=== PATIENT | male | born 1990 | race Hispanic/Latino ===

== ENCOUNTER 2018-03-01 20:49 | Inpatient (IN) | payer BC, OTHER ==
--- NOTE | 2018-03-01 21:55 | ED PDOC ---
HPI: Psych/Substance Abuse Time Seen by Provider: 03/01/18 21:37 Chief Complaint (Nursing): Psychiatric Evaluation Chief Complaint (Provider): Psychiatric Evaluation History Per: Patient History/Exam Limitations: no limitations Onset/Duration Of Symptoms: Days (several weeks) Current Symptoms Are (Timing): Still Present Additional Complaint(s): 27 year old male presents to the ED for a psychiatric evaluation. Patient states for the past several weeks he has been feeling depressed, drinking every day, his last time two hours ago. He also reports that today while smoking on the fifth floor of his friend's apartment building, he felt a sudden urge to want to jump out the window, but currently has no plan to harm himself, despite having a suicide attempt eight years ago. Patient is requesting an alcohol detox , and otherwise denies homicidal ideation or hallucinations. PMD: none provided Past Medical History Reviewed: Historical Data, Nursing Documentation, Vital Signs Vital Signs: Last Vital Signs Temp 98.1 F 03/01/18 21:29 Pulse 78 03/01/18 21:29 Resp 18 03/01/18 21:29 BP 147/95 H 03/01/18 21:29 Pulse Ox 100 03/01/18 21:29 - Medical History PMH: Chronic Pain (to neck and back) Other PMH: spinal bifida, born with 1 kidney - Surgical History Other surgeries: to neck and lumbar spine - Family History Family History: States: No Known Family Hx - Social History Current smoker - smoking cessation education provided: Yes Alcohol: Other (has recently been drinking every day) Drugs: Denies - Home Medications Home Medications: Ambulatory Orders Medication Instructions Recorded No Known Home Med 03/02/18 - Allergies Allergies/Adverse Reactions: Allergies Allergy/AdvReac Type Severity Reaction Status Date / Time amoxicillin [From Amoxil] Allergy RASH Verified 03/01/18 21:29 latex Allergy RASH Verified 03/01/18 21:29 milk Allergy RASH Verified 03/01/18 21:29 Review of Systems ROS Statement: Except As Marked, All Systems Reviewed And Found Negative Psych: Positive for: Depression, Suicidal ideation (with no plan). Negative for : Other (hallucinations, homicidal ideation) Physical Exam - Reviewed Nursing Documentation Reviewed: Yes Vital Signs Reviewed: Yes - Physical Exam Appears: Positive for: No Acute Distress (calm and cooperative) Head Exam: Positive for: ATRAUMATIC, NORMOCEPHALIC Skin: Positive for: Normal Color (but old scars on neck and lumbar area), Warm, Dry Eye Exam: Positive for: Normal appearance, EOMI, PERRL ENT: Positive for: Normal ENT Inspection Neck: Positive for: Normal, Painless ROM, Supple Cardiovascular/Chest: Positive for: Regular Rate, Rhythm Respiratory: Positive for: Normal Breath Sounds. Negative for: Accessory Muscle Use, Respiratory Distress Gastrointestinal/Abdominal: Positive for: Normal Exam, Soft. Negative for: Tenderness Back: Positive for: Normal Inspection Extremity: Positive for: Normal ROM Neurologic/Psych: Positive for: Alert, Oriented - Laboratory Results Result Diagrams: 03/01/18 22:57 03/02/18 08:15 - ECG ECG: Positive for: Interpreted By Me (and Dr. Small) ECG Rhythm: Positive for: Sinus Rhythm. Negative for: ST/T Changes O2 Sat by Pulse Oximetry: 100 (RA) Pulse Ox Interpretation: Normal - Progress ED Course And Treament: 2359 K: 5.4 EKG ordered which showed no ST-T wave changes. Case d/w Dr. Small who recommends Kayexalate 15gm PO and pt can be cleared for psych without repeat K. Pt. informed of elevated K and reports no hx of elevated K. Denies chest pain. Advised to f/u with PMD regarding hyperkalemia. Medical Decision Making Medical Decision Making: Time: 2137 Initial Impression: psychiatric evaluation Initial Plan: --Alcohol serum --CMP --Drug screen --Crisis eval --CBC with differential --1:1 observation --Urinalysis Scribe Attestation: Documented by Glo Tristan acting as a scribe for Venkatesh Ward PA-C. Provider Scribe Attestation: All medical record entries made by the Scribe were at my direction and personally dictated by me. I have reviewed the chart and agree that the record accurately reflects my personal performance of the history, physical exam, medical decision making, and the department course for this patient. I have also personally directed, reviewed, and agree with the discharge instructions and disposition. Disposition - Clinical Impression Clinical Impression: Depression, Hyperkalemia - Patient ED Disposition Is Patient to be Admitted: Transfer of Care (Signed out to Kailey LUGO pending crisis evaluation and disposition) - Disposition Disposition Time: 00:00 Condition: GOOD
[2018-03-01 23:00] LABS: BASO # 0.1 K/uL (0.0-0.2); BASO % 1.1 % (0.0-2.0); EOS % 0.2 % (0.0-4.0); HEMOGLOBIN 16.6 g/dL (12.0-18.0); LYMPH # 3.1 K/uL (1.0-4.3); MEAN CELL VOLUME 91.4 fl (80.0-94.0); MEAN CORPUSCULAR HEMOGLOBIN 31.1 pg (27.0-31.0); MEAN PLATELET VOLUME 8.2 fl (7.2-11.7); MONO # 0.5 K/uL (0.0-0.8); MONO % 5.6 % (0.0-10.0); NEUT # 4.4 K/uL (1.8-7.0); NEUT % 55.1 % (50.0-75.0); NRBC % 0.1 % (0.0-0.0); RBC 5.34 Mil/uL (4.40-5.90); RED CELL DISTRIBUTION WIDTH 13.8 % (11.5-14.5); WHITE BLOOD COUNT 8.1 K/uL (4.8-10.8)
[2018-03-01 23:19] LABS: BARBITURATES, UR NEGATIVE (NEGATIVE); BENZODIAZEPINES, UR NEGATIVE (NEGATIVE); OPIATES, UR NEGATIVE (NEGATIVE); PHENCYCLIDINE, UR NEGATIVE (NEGATIVE)
[2018-03-01 23:19] LABS: ALB/GLOB RATIO 1.5 (1.0-2.1); ALBUMIN 4.9 g/dL (3.5-5.0); ALT/SGPT 33 U/L (21-72); AST/SGOT 39 U/L (17-59); BLOOD UREA NITROGEN 11 mg/dl (9-20); CALCIUM 9.7 mg/dL (8.4-10.2); GFR AFRICAN-AMERICAN > 60; GFR NON-AFRICAN AMERICAN > 60
[2018-03-01 23:25] LABS: SPERM URINE MOD /hpf; URINE BILIRUBIN NEGATIVE (NEGATIVE); URINE BLOOD SMALL (NEGATIVE); URINE CLARITY CLOUDY (Clear); URINE COLOR YELLOW (YELLOW); URINE GLUCOSE (UA) NEG (Normal); URINE LEUKOCYTE ESTERASE TRACE Leu/uL (Negative); URINE PROTEIN 30 mg/dL (NEGATIVE); URINE UROBILINOGEN 0.2-1.0 mg/dL (0.2-1.0)
[2018-03-01] MEDS ORDERED: Sod Polystyrene Sulf 15 gm/60 ml Susp PO STA (23:58)
[2018-03-02] MEDS ORDERED: Sod Polystyrene Sulf 15 gm/60 ml Susp ONE (00:06)
--- NOTE | 2018-03-02 02:10 | ED PDOC ---
- Laboratory Results Result Diagrams: 03/01/18 22:57 03/01/18 22:57 - ECG O2 Sat by Pulse Oximetry: 100 (RA) Pulse Ox Interpretation: Normal Medical Decision Making Medical Decision Making: Pt endorsed pending sobriety and re-evaluation by graphic pre press trades worker at 4am. Re-evaluation completed. Pt admitted to psychiatric unit. Disposition - Clinical Impression Clinical Impression: Depression, Hyperkalemia - POA Present On Arrival: None - Disposition Disposition: Admitted as In-Patient Disposition Time: 04:37 Condition: GOOD Instructions: Depression Forms: [facility] (Yakut)
[2018-03-02] MEDS ORDERED: Alum-Mag Hydrox-Simethicone Susp (30 mL) PO PRN (05:18)
[2018-03-02] MEDS ORDERED: Magnesium Hydroxide Susp 30 ml UD PO PRN (05:18)
--- NOTE | 2018-03-02 06:37 | PCM.BM ---
<Juju Preciado Savita - Last Filed: 03/02/18 06:36> Treatment Plan Problems - Problems identified on initial assessmt Knowledge Deficit:alcohol Use Date Initiated: 03/02/18 Time Initiated: 06:36 Assessment reference: NA Status: Active Altered Health Maintenance Date Initiated: 03/02/18 Time Initiated: 06:36 Assessment reference: NA Status: Active Treatment assets and liabiliti Patient Assests: cooperative, educated, motivated, ADL independent, negotiates basic needs, cognitively intact Patient Liabilities: financial problems, poor support system, relationship conflicts, substance abuse, medical problems - Milieu Protocol Maintain good personal hygiene: daily Encourage regular showers, daily Remind patient to perform daily oral care, daily Assist patient to perform ADL's Conduct patient checks and document Observation sheet: Q15 minutes Maintain personal safety: every shift Educate patient to report safety concerns to staff, every shift Monitor environment for contraband/sharps Medication safety: Monitor for expected outcome, potential side effects: every shift, Assess barriers to learning: every shift, Assess readiness for medication education: every shift <Tavia Hernandez - Last Filed: 03/04/18 11:36> Treatment assets and liabiliti Patient Assests: good support system Patient Liabilities: relationship conflicts (recent discord with girlfriend), medical problems, legal issue (recent possession charge) Family Contact Family involvement: Family/SO is involved Family contact: Patient agrees to contact, Family has been contacted by patient - Outside Agency Agency 1 Care involvment: Other (Pt. interested in referral to [facility] (family is known to facility)) Agency contact name: [facility] Agency contact number: [phone] - Goals for Treatment Patient goals for treatment: Patient to continue stabilization on 3NP through medication management and group/supportive therapy to address sxs of depression and anxiety and eliminate SI. Patient to be encouraged to attend groups regularly to promote self-awareness, sobriety, and improve insight, compliance, coping skills and self-esteem. Patient to be provided with referral for appropriate level of aftercare to reduce risk of future hospitalizations and ensure safety in the community. Discharge/Continuing Care - Education Needs Education Needs: Family Medication, Family Diagnosis/Disease Process, Family Coping Skills, Family Aftercare Safety Plan, Patient Medication, Patient Diagnosis/Disease Process, Patient Coping Skills, Patient Anger Management skills, Patient Aftercare Safety Plan - Discharge Discharge Criteria: Tolerates medication w/o severe side effects, Free of Suicidal thoughts, Normal sleep pattern, Ability to care for self, No longer exhibiting s/s of withdrawal Discharge to:: With Family, Substance Abuse Rehab, Other (patient to be provided with [facility] referral if inpatient rehab bed cannot be secured prior to discharge) - Treatment Team Participation Patient/Family/SO Statement: 03/04/18 11:39 Patient attended tx team with morning to discuss progress on 3NP and tx goals. Cable Television Installer notified patient that marketing copywriter was contacted by [facility] inquiring about rehab referral. Patient expressed ambivalence/hesitation regarding inpatient substance abuse treatment secondary to employment. Benefits of intensive inpatient substance abuse/mental health tx following discharge to improve functioning and ensure safety in the community were discussed at length. Risks of relapse and rehospitalization without appropriate aftercare discussed. Patient superficially receptive to feedback. Pt. agreeable to having marketing copywriter return [facility] call and pursue inpatient rehab referral. Patient agreeable to rehab referrals to other facilities if [facility] is unable to accept patient. Pt. visible on 3NP and observed socializing appropriately with peers. Pt. presents as depressed an anxious but to a lesser degree than upon admission. Pt. grandiose and histrionic at times. Affect is brighter. Thoughts are clear and connected. Speech: normal rate and tone. Pt. denies SI/ HI and is able to contract for safety on 3NP. Medication management discussed. Pt. agreeable to recommended medication regimen. Discussed with Family/SO: Yes Was Patient/Family/SO present at Treatment Team Meeting: Yes <David Garcia - Last Filed: 03/06/18 12:23> - Diagnosis (1) Alcohol abuse Status: Acute Interventions: 03/06/18 12:23 motivational therapy
--- NOTE | 2018-03-02 07:54 | CARD ---
APPROVED REPORT Date of service: 03/01/2018 <Conclusion> Normal sinus rhythm Normal ECG
[2018-03-02 09:09] LABS: BLOOD UREA NITROGEN 15 mg/dl (9-20); CALCIUM 9.2 mg/dL (8.4-10.2); GFR AFRICAN-AMERICAN > 60; GFR NON-AFRICAN AMERICAN > 60
[2018-03-02] MEDS ORDERED: Pneumococcal 23-Valent Vaccine IM ONE (10:00)
[2018-03-02] MEDS: Multivitamin With Minerals Tab PO SCH (11:13)
[2018-03-02 12:51] VITALS: O2SAT 100
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
[2018-03-03] MEDS: Multivitamin With Minerals Tab PO SCH (09:11)
[2018-03-03 09:44] LABS: T4 8.73 ug/dl (5.5-11.0)
--- NOTE | 2018-03-03 15:15 | PCM.PYCHPN ---
Psychiatric Progress Note - Psychiatric Progress Note Patient seen today, length of contact: pt evaluated discussed with team chart reviewed Patient Chief Complaint: I feel anxious and depressed Problems Identified/Issues Discussed: pt evaluated , presenting with anxious mood and depressed affect, pt reported feeling hopeless and helpless as he is currently homeless and facing legal charges due to cannabis possession, motivational therapy provided discussed with pt effect of substance use on current mental status and his function of living discussed increasing abilify gradually for mood stabilization, no reported side effects discussed referral to rehab on discharge pt denied any current suicidal or homicidal ideation, denied perceptual disturbances Medical Problems: PT CURRENTLY NON COMPLIANT DSM 5 Symptoms Update: alcohol induced mood disorder' cannabis abuse bipolar disorder Medication Change: Yes (increase abilify) Medical Record Reviewed: Yes Mental Status Examination - Cognitive Function Orientation: Person, Place, Situation Attention: WNL Concentration: WNL Association: WNL Fund of Knowledge: [facility] Decription of patient's judgement and insights: partial insight, poor judgment - Mood Mood: Depressed, Anxious - Affect Affect: Constricted - Speech Speech: Appropriate - Formal Thought Process Formal Thought Process: Circumstantial Psychotic Thoughts and Behaviors: pt denied perceptual disturbances, non elicited - Suicidal Ideation Suicidal Ideation: No - Homicidal Ideation Homicidal Ideation: No Goal/Treatment Plan - Goal/Treatment Plan Need for Continued Stay: Remain at risks for inpatient hospitalization, Severe depression anxiety, Discharge may exacerbated symptoms Progress Toward Problem(s) and Goals/Treatment Plan: decrease librium to 5mg tid , pt will be monitored for symptoms and signs of alcohol withdrawal neurontin 100mg tid for anxiety increase abilify 5mg for mood stabilization motivational group and supportive therapy
[2018-03-04] MEDS: Multivitamin With Minerals Tab PO SCH (09:46)
[2018-03-04] MEDS ORDERED: Tuberculin 5 Units/0.1 ml Inj ID ONE (14:00)
--- NOTE | 2018-03-04 14:03 | PCM.PYCHPN ---
Psychiatric Progress Note - Psychiatric Progress Note Patient seen today, length of contact: pt evaluated discussed with team chart reviewed Patient Chief Complaint: I will have to do what will help me to keep my job Problems Identified/Issues Discussed: pt evaluated with treatment team, reported feeling anxious as he is worried about loosing his job, motivational therapy provided, discussed with patient importance of joining inpatient rehab, pt agreed also discussed possibility of being started on maintenance treatment to help with cravings, including vivtrol injection, pt agreed discussed increasing neurontin for anxiety while discontinuing the librium protocol. pt denied any current symptoms of depression, observed attending groups and socializing with other patients denied suicidal or homicidal ideation, denied perceptual disturbances Medical Problems: PT CURRENTLY NON COMPLIANT DSM 5 Symptoms Update: alcohol induced mood disorder alcohol use disorder alcohol induced anxiety disorder cannabis abuse Medication Change: Yes (discontinue abilify) Medical Record Reviewed: Yes Mental Status Examination - Cognitive Function Orientation: Person, Place, Situation Attention: WNL Concentration: WNL Association: WNL Fund of Knowledge: WN Decription of patient's judgement and insights: partial insight, poor judgment - Mood Mood: Anxious - Affect Affect: Constricted - Speech Speech: Appropriate - Formal Thought Process Formal Thought Process: No Impairment Psychotic Thoughts and Behaviors: pt denied perceptual disturbances, non elicited - Suicidal Ideation Suicidal Ideation: No - Homicidal Ideation Homicidal Ideation: No Goal/Treatment Plan - Goal/Treatment Plan Need for Continued Stay: Remain at risks for inpatient hospitalization, Severe depression anxiety, Discharge may exacerbated symptoms Progress Toward Problem(s) and Goals/Treatment Plan: discontinue librium protocol discontinue abilify increase neurontin 200mg tid for anxiety motivational group and supportive therapy referral to inpatient rehab
--- NOTE | 2018-03-04 14:57 | RAD ---
Date of service: 03/04/2018 PROCEDURE: CHEST RADIOGRAPH, 1 VIEW HISTORY: Clearance for rehab dilatation program/excluding TB COMPARISON: None available. FINDINGS: LUNGS: Clear. PLEURA: No pneumothorax or pleural fluid seen. CARDIOVASCULAR: Normal. OSSEOUS STRUCTURES: No significant abnormalities. VISUALIZED UPPER ABDOMEN: Normal. OTHER FINDINGS: None. IMPRESSION: No active disease.
--- NOTE | 2018-03-04 16:27 | CP.PCM.CON ---
History of Present Illness - History of Present Illness History of Present Illness: 27 yo male with history of alcohol abuse admitted to psyche unit because of depression Review of Systems - Review of Systems All systems: reviewed and no additional remarkable complaints except (aside from those mentioned above, 12 point system review were negative by me) Past Patient History - Tetanus Immunizations Tetanus Immunization: Unknown - Past Social History Smoking Status: Heavy Smoker > 10 Cigarettes Daily Alcohol: > 2 Drinks/Day (has recently been drinking every day) Drugs: Cannabis - CARDIAC Hx Cardiac Disorders: No - PULMONARY Hx Respiratory Disorders: No - NEUROLOGICAL Hx Neurological Disorder: No - HEENT Hx HEENT Problems: No - RENAL Other/Comment: 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 - ANESTHESIA Hx Anesthesia: Yes Hx Anesthesia Reactions: No Hx Malignant Hyperthermia: No Has any member of the family had a problem w/ anesthesia?: No Meds Home Medications: Home Medication List Medication Instructions Recorded Confirmed Type Gabapentin [Neurontin] 200 mg PO TID 30 Days #90 cap 03/04/18 Rx traZODone [Desyrel] 100 mg PO HS 30 Days #30 tab 03/04/18 Rx Allergies/Adverse Reactions: Allergies Allergy/AdvReac Type Severity Reaction Status Date / Time amoxicillin [From Amoxil] Allergy RASH Verified 03/01/18 21:29 latex Allergy RASH Verified 03/01/18 21:29 milk Allergy RASH Verified 03/01/18 21:29 whey Allergy DIARRHEA Verified 03/03/18 17:31 - Medications Medications: Current Medications Acetaminophen (Tylenol 325mg Tab) 650 mg PO Q4 PRN PRN Reason: Pain, moderate (4-7) Al Hydrox/Mg Hydrox/Simethicone (Maalox Plus 30 Ml) 30 ml PO Q4 PRN PRN Reason: Dyspepsia Chlordiazepoxide (Librium) 5 mg PO BID PRN PRN Reason: Anxiety Diphenhydramine HCl (Benadryl) 50 mg PO HS PRN PRN Reason: Sleep Last Admin: 03/04/18 00:40 Dose: 50 mg Folic Acid (Folic Acid) 1 mg PO DAILY [facility] Last Admin: 03/04/18 09:47 Dose: 1 mg Gabapentin (Neurontin) 200 mg PO TID [facility] Hydroxyzine Pamoate (Vistaril) 50 mg PO Q8 PRN PRN Reason: Anxiety Magnesium Hydroxide (Milk Of Magnesia) 30 ml PO HS PRN PRN Reason: Constipation Multivitamins/Minerals (Therapeutic-M Tab) 1 tab PO DAILY [facility] Last Admin: 03/04/18 09:46 Dose: 1 tab Thiamine HCl (Vitamin B1 Tab) 100 mg PO DAILY [facility] Last Admin: 03/04/18 09:46 Dose: 100 mg Trazodone HCl (Desyrel) 100 mg PO [facility] Physical Exam - Constitutional Appears: No Acute Distress - Head Exam Head Exam: ATRAUMATIC - Eye Exam Eye Exam: absent: Scleral icterus - ENT Exam ENT Exam: Mucous Membranes Moist - Neck Exam Neck exam: Negative for: Meningismus - Respiratory Exam Respiratory Exam: absent: Rales, Rhonchi, Wheezes, Respiratory Distress - Cardiovascular Exam Cardiovascular Exam: REGULAR RHYTHM, +S1, +S2 - GI/Abdominal Exam GI & Abdominal Exam: Soft. absent: Tenderness - Rectal Exam Rectal Exam: Deferred - Neurological Exam Neurological exam: Alert, Oriented x3 - Psychiatric Exam Psychiatric exam: Normal Affect - Skin Skin Exam: Dry, Intact Results - Vital Signs Recent Vital Signs: Last Vital Signs Temp 97.7 F 03/04/18 09:19 Pulse 55 L 03/04/18 09:19 Resp 18 03/04/18 09:19 BP 115/67 03/04/18 09:19 Pulse Ox 100 03/02/18 12:51 - Labs Result Diagrams: 03/01/18 22:57 03/02/18 08:15 Labs: Laboratory Results - last 24 hr 03/03/18 07:39 RPR Nonreactive Assessment & Plan (1) Depression Status: Acute Comment: psyche is managing (2) Alcohol abuse Status: Acute Comment: psyche is managing
[2018-03-04 16:48] LABS: HDL CHOLESTEROL 95 MG/DL (30-70)
[2018-03-04 16:58] LABS: LDL CHOLESTEROL 47 mg/dL (0-129)
[2018-03-05] MEDS: Multivitamin With Minerals Tab PO SCH (11:59)
--- NOTE | 2018-03-05 14:17 | PCM.PYCHPN ---
Psychiatric Progress Note - Psychiatric Progress Note Patient seen today, length of contact: pt evaluated discussed with team chart reviewed Patient Chief Complaint: I am willing to start inpatient rehab Problems Identified/Issues Discussed: pt evaluated , presenting with brighter affect, reported feeling less depressed and less anxious, pt motivated to start inpatient rehab no reported changes in sleep or appetite denied suicidal or homicidal ideation, denied perceptual disturbances DSM 5 Symptoms Update: alcohol induced mood disorder alcohol use severe depression Medication Change: Yes (discontinue librium) Medical Record Reviewed: Yes Mental Status Examination - Cognitive Function Orientation: Person, Place, Situation Attention: WNL Concentration: WNL Association: WN Fund of Knowledge: [facility] Decription of patient's judgement and insights: partial insight, poor judgment - Mood Mood: Neutral - Affect Affect: Constricted - Speech Speech: Appropriate - Formal Thought Process Formal Thought Process: No Impairment Psychotic Thoughts and Behaviors: pt denied perceptual disturbances, non elicited - Suicidal Ideation Suicidal Ideation: No - Homicidal Ideation Homicidal Ideation: No Goal/Treatment Plan - Goal/Treatment Plan Need for Continued Stay: Remain at risks for inpatient hospitalization, Severe depression anxiety, Discharge may exacerbated symptoms Progress Toward Problem(s) and Goals/Treatment Plan: neurontin 200mg tid for anxiety trazodone 200mg qhs for insomnia motivational group and supportive therapy referral to inpatient rehab
[2018-03-05 18:00] VITALS: BP 124/73; PULSE 72; RESP 20; TEMP 97.7
[2018-03-06] MEDS: Multivitamin With Minerals Tab PO SCH (09:28)
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
== END 2018-03-06 10:00 | DRG 750 ==
LOC: H.ER 20:49 → H.ERHOLD 03-02 04:41 → H.PSYCH 03-02 05:20
PROVIDERS: ADMIT Psychiatry & Neurology Psychiatry; ATTEND Psychiatry & Neurology Psychiatry
PROC: GZHZZZZ Group Psychotherapy (ICD-10-PCS; principal; 2018-03-02)
PROC: HZ57ZZZ Individual Psychotherapy for Substance Abuse Treatment, Motivational Enhancement (ICD-10-PCS; 2018-03-02)
PROC: HZ59ZZZ Individual Psychotherapy for Substance Abuse Treatment, Supportive (ICD-10-PCS; 2018-03-02)
PROC: 3E0234Z Introduction of Serum, Toxoid and Vaccine into Muscle, Percutaneous Approach (ICD-10-PCS; 2018-03-02)
DX: F10.94 Alcohol use, unspecified with alcohol-induced mood disorder (principal); E87.5 Hyperkalemia; Y90.8 Blood alcohol level of 240 mg/100 ml or more; F12.90 Cannabis use, unspecified, uncomplicated; F32.9 Major depressive disorder, single episode, unspecified; F41.9 Anxiety disorder, unspecified; G47.00 Insomnia, unspecified; R45.851 Suicidal ideations; Z59.0 Homelessness; Z91.14 Patient's other noncompliance with medication regimen; Z91.19 Patient's noncompliance with other medical treatment and regimen; Q60.0 Renal agenesis, unilateral; Z88.0 Allergy status to penicillin; Z91.040 Latex allergy status; Z91.011 Allergy to milk products; Z23 Encounter for immunization; G89.29 Other chronic pain; F17.210 Nicotine dependence, cigarettes, uncomplicated; F10.929 Alcohol use, unspecified with intoxication, unspecified